=== PATIENT | male | born 1975 | race Two or more races ===

== ENCOUNTER 2018-11-18 11:18 | Outpatient (CLI) | payer OTHER | END 2018-11-18 11:45 | disposition home or self-care (01) | LOC: RAD 501 11:18 | DX: M75.122 Complete rotator cuff tear or rupture of left shoulder, not specified as traumatic (principal) ==

== ENCOUNTER 2022-03-31 12:38 | Outpatient (CLI) | payer OTHER | END 2022-03-31 12:40 | disposition home or self-care (01) | LOC: RAD 12:38 | PROVIDERS: ATTEND Physical Medicine & Rehabilitation | DX: M75.101 Unspecified rotator cuff tear or rupture of right shoulder, not specified as traumatic (principal); M75.31 Calcific tendinitis of right shoulder; M25.511 Pain in right shoulder | CPT/HCPCS: 73218 ==

== ENCOUNTER 2023-08-27 10:42 | Outpatient (CLI) | payer OTHER | END 2023-08-27 10:47 | disposition home or self-care (01) | LOC: RAD 10:42 | PROVIDERS: ATTEND Physical Medicine & Rehabilitation | DX: M75.31 Calcific tendinitis of right shoulder (principal) ==

== ENCOUNTER 2023-09-26 09:24 | Outpatient (CLI) | payer OTHER | END 2023-09-26 09:29 | disposition home or self-care (01) | LOC: RAD 09:24 | PROVIDERS: ATTEND Physical Medicine & Rehabilitation | DX: M25.511 Pain in right shoulder (principal); M75.31 Calcific tendinitis of right shoulder ==

== ENCOUNTER 2024-01-30 10:21 | Outpatient (CLI) | payer OTHER | END 2024-01-30 10:34 | disposition home or self-care (01) | LOC: MRI 10:21 | PROVIDERS: ATTEND Physical Medicine & Rehabilitation | DX: M25.511 Pain in right shoulder (principal); M75.32 Calcific tendinitis of left shoulder | CPT/HCPCS: 73221 ==

== ENCOUNTER 2025-02-04 13:30 | Outpatient (CLI) | payer OTHER | END 2025-02-04 13:33 | disposition home or self-care (01) | LOC: RAD 13:30 | PROVIDERS: ATTEND Physical Medicine & Rehabilitation | DX: M54.2 Cervicalgia (principal); M25.512 Pain in left shoulder ==